=== PATIENT | female | born 1995 | race Caucasian/White ===

== ENCOUNTER 2016-06-01 07:54 | Emergency (ER) | payer SELFPAY ==
--- NOTE | 2016-06-01 08:12 | UC ---
Skin Complaint HPI - History of Current Complaint Time Seen by Provider: 06/01/16 07:58 Stated Complaint: LEFT EAR PAIN Hx Obtained From: Patient ?: No Onset/Duration: Gradual Onset Skin Exposure Onset/Duration: Days Ago Timing: Constant Onset Severity: Mild Current Severity: Moderate Location: Ear (Left) Character: Swelling, Pain, Redness, Painful Aggravating: Touch Alleviating: Nothing Associated Signs & Symptoms: Positive: Drainage. Negative: Nausea, Vomiting, Numbness, Thirst, Diaphoresis, Weakness, Pallor, Shivering, Difficulty Breathing , Fever, Chills, Cough, Wheezing, Chest Pain, Hoarseness, Throat Tightening, Rash, Abdominal Pain, Tenderness, Red Streaks, Joint Swelling Related History: Foreign Body - she had a peircing in the tragus on the left last wednesday. the swelling and redness stared midly last night. No prior mrsa or skin infections. - Allergy/Home Medications Allergies/Adverse Reactions: Allergies Allergy/AdvReac Type Severity Reaction Status Date / Time Clarithromycin Allergy Vomiting Verified 06/01/16 08:09 Clindamycin Allergy Rash Verified 06/01/16 08:09 Home Medications: Home Medications Cetirizine* [ZyrTEC 10 MG TAB*] 10 mg PO DAILY 06/01/16 [History Confirmed 06/01] Escitalopram Oxalate [Lexapro] 10 mg PO DAILY 06/01/16 [History Confirmed ] Ibuprofen [Advil] 600 mg PO DAILY 06/01/16 [History Confirmed 06/01/16] Levonorgestrel & Eth Estradiol [Orsythia 0.1-20 mg-Mcg] 1 tab PO DAILY 06/01/16 [History Confirmed 06/01/16] Pantoprazole TAB (NF) [Protonix TAB (NF)] 40 mg PO DAILY 06/01/16 [History Confirmed 06/01/16] Review of Systems Constitutional: Negative All Other Systems Reviewed And Are Negative: Yes PMH/Surg Hx/FS Hx/Imm Hx Previously Healthy: Yes Endocrine History Of: Denies: Diabetes - Surgical History Surgical History: None - Family History Known Family History: Negative: Diabetes - Social History Occupation: Student Physical Exam Triage Information Reviewed: Yes Vital Signs Reviewed: Yes Eye Exam: Normal Eyes: Positive: Conjunctiva Clear. Negative: Conjunctiva Inflamed ENT Exam: Normal ENT: Positive: Pharynx normal, Other: - There is swelling, redness and tenderness of the left ear. this includes the tragus, pinna. no surrounding redness of the face or neck. no obvious neck adenopathy. Neck exam: Normal Neck: Positive: Supple, Nontender, No Lymphadenopathy. Negative: Nuchal Rigidity, Tenderness @, Enlarged Nodes @ Respiratory Exam: Normal Respiratory: Positive: Chest non-tender, Lungs clear, Normal breath sounds, No respiratory distress, No accessory muscle use. Negative: Respiratory distress Cardiovascular Exam: Normal Cardiovascular: Positive: RRR, No Murmur, Pulses Normal, Brisk Capillary Refill Abdominal Exam: Normal Abdomen Description: Positive: Nontender, No Organomegaly, Soft Musculoskeletal Exam: Normal Musculoskeletal: Positive: Strength Intact, ROM Intact, No Edema Neurological Exam: Normal Neurological: Positive: Alert, Muscle Tone Normal Psychological Exam: Normal Skin Exam: Other - refer to ent exam for Left ear swelling. Re-Evaluation - Re-Evaluation First Eval Change: Unchanged - Left tragal piercing removed without complication. Course/Dx - Course Course Of Treatment: cellulitis of the left ear following ear piercing. - Differential Diagnoses - Skin Complaint Differential Diagnoses: Abscess, Anaphylaxis, Angioedema, Cellulitis, Contact Dermatitis, Drug Rash, Drug Intoxication, Eczema, Heat Stroke, Tinea, Varicella Zoster, Viral Exanthem - Diagnoses Provider Diagnoses: Left ear cellulitis. Infected piercing. Discharge - Discharge Plan Condition: Good Disposition: HOME Prescriptions: Sulfamethox/Trimethoprim DS* [Bactrim DS 800/160 TAB*] 2 tab PO BID #[id number] tab Patient Education Materials: Cellulitis (ED) Additional Instructions: return here for any worsening as we discussed.
[2016-06-01 08:16] VITALS: BP 127/87
== END 2016-06-01 08:46 | disposition home or self-care (01) ==
LOC: UCCORT 07:54
DX: S01.332A Puncture wound without foreign body of left ear, initial encounter (principal); H60.12 Cellulitis of left external ear; W26.8XXA Contact with other sharp object(s), not elsewhere classified, initial encounter; Y93.9 Activity, unspecified; Y92.9 Unspecified place or not applicable; Z88.1 Allergy status to other antibiotic agents
CPT/HCPCS: 99202; G0463